=== PATIENT | male | born 1995 | race Two or more races ===

== ENCOUNTER 2025-06-06 19:49 | Emergency (ER) | payer MEDICAID, OTHER ==
[~2025-06-06] VITALS: Ht 165.1 cm; Wt 106.1 kg
[2025-06-06 20:19] VITALS: BP 134/78; TEMP 98.3; O2SAT 98
[2025-06-06 20:58] LABS: PLATELET COUNT (AUTO) 158 K/uL (150-450); RED BLOOD CELL COUNT(AUTO) 4.87 MIL/uL (4.5-6.0); RED CELL DISTRIBUTION WIDTH 13.0 % (11.5-15.0); WHITE BLOOD COUNT (AUTO) 7.6 K/uL (4.3-11.0)
[2025-06-06 21:20] LABS: ASPARTATE AMINOTRANSFERASE 42 U/L (15-37); CALCIUM, SERUM 8.1 mg/dL (8.5-10.1); CREATININE 1.2 mg/dL (0.6-1.3); SODIUM SERUM 141 mmol/L (136-145); TOTAL PROTEIN, SERUM 7.2 g/dL (6.4-8.2); UREA NITROGEN, BLOOD 13 mg/dL (7-18)
== END 2025-06-06 23:30 | disposition home or self-care (01) ==
LOC: ER 19:51
DX: R07.89 Other chest pain (principal)
CPT/HCPCS: 36415; 71045-TC; 80048-TC; 80076-TC; 84484-TC; 85025-TC